=== PATIENT | female | born 1995 | race Caucasian/White ===

== ENCOUNTER 2018-09-25 06:15 | Inpatient (IN) | payer MEDICAID ==
[2018-09-23 10:48] LABS: ABSOLUTE EOSINOPHILS # (AUTO) 0.1 10^3/uL (0.0-0.6); ABSOLUTE LYMPHOCYTES (AUTO) 2.3 10^3/uL (0.5-4.7); ABSOLUTE MONOCYTES (AUTO) 1.1 10^3/uL (0.1-1.4); ABSOLUTE NEUT (AUTO) 8.5 10^3/uL (1.7-8.2); BASOPHILS % (AUTO) 0.2 % (0-2); EOSINOPHILS % (AUTO) 1.2 % (0-6); HEMATOCRIT 34.8 % (36.0-47.0); LYMPHOCYTES % (AUTO) 19.2 % (13-45); MEAN CORPUSCULAR HEMOGLOBIN 29.9 pg (27.0-33.4); MEAN CORPUSCULAR HGB CONC 34.4 g/dL (32.0-36.0); MEAN CORPUSCULAR VOLUME 87 fl (80-97); MONOCYTES % (AUTO) 9.3 % (3-13); PLATELET COUNT 271 10^3/uL (150-450); RED BLOOD COUNT 4.01 10^6/uL (3.72-5.28); RED CELL DISTRIBUTION WIDTH 13.4 % (11.5-14.0); SEGMENTED NEUTROPHILS % (AUTO) 70.1 % (42-78); TOTAL CELLS COUNTED % (AUTO) 100 %; WHITE BLOOD COUNT 12.1 10^3/uL (4.0-10.5)
[2018-09-23 10:53] LABS: APPEARANCE,URINE CLOUDY; BILIRUBIN,URINE NEGATIVE (NEGATIVE); CALCIUM OXALATE CRYSTALS,URINE FEW /HPF; GLUCOSE, URINE NEGATIVE (NEGATIVE); KETONES,URINE NEGATIVE (NEGATIVE); LEUKOCYTE ESTERASE,URINE NEGATIVE (NEGATIVE); NITRITE,URINE NEGATIVE (NEGATIVE); PROTEIN,URINE NEGATIVE (NEGATIVE); URINE SPECIFIC GRAVITY 1.026
[2018-09-23 10:58] LABS: COLOR,URINE YELLOW
[2018-09-23 11:14] LABS: URINE AMPHETAMINES SCREEN NEGATIVE; URINE BARBITURATES SCREEN NEGATIVE; URINE BENZODIAZEPINES SCREEN NEGATIVE; URINE COCAINE SCREEN NEGATIVE; URINE MARIJUANA (THC) SCREEN NEGATIVE; URINE METHADONE SCREEN NEGATIVE; URINE PHENCYCLIDINE SCREEN NEGATIVE
[~2018-09-25 06:15] MED LIST: CEFAZOLIN 1 GM/D5W RTU 1 GM/50 ML RTUPB IV PRN; LIDOCAINE 0.5% INJ-PF (5 MG/ML) 50 ML SDV SUBCUT PRN; RINGERS SOLUTION,LACTATED 1,500 ML IV PRN
[2018-09-25] MEDS ORDERED: MIDAZOLAM 2 MG/2 ML INJ ONE (07:01)
[2018-09-25] MEDS ORDERED: OXYTOCIN 10 UNIT/ML VIAL ONE (07:01)
[2018-09-25] MEDS ORDERED: FENTANYL CITRATE INJ/PF 100 MCG/2 ML AMPUL ONE ×2 (07:01→11:57)
[2018-09-25] MEDS: LACTATED RINGERS 1000 ML IV PRN ×2 (08:03→15:37)
[2018-09-25] MEDS ORDERED: PROMETHAZINE HCL INJ 25 MG/1 ML VIAL IV PRN ×3 (10:43→10:56)
[2018-09-25] MEDS ORDERED: MEPERIDINE HCL/PF INJ 25 MG/1 ML DISP.SYRIN IV PRN (10:43)
[2018-09-25] MEDS ORDERED: FENTANYL CITRATE INJ/PF 100 MCG/2 ML AMPUL IV PRN ×2 (10:43)
[2018-09-25] MEDS ORDERED: DIPHENHYDRAMINE HCL 50 MG/ML VIAL IV PRN (10:43)
[2018-09-25] MEDS ORDERED: ONDANSETRON HCL INJ/PF 4 MG/2 ML SDV IV PRN (10:43)
[2018-09-25] MEDS ORDERED: MORPHINE SULFATE 10 MG/ML INJ IV PRN (10:43)
[2018-09-25] MEDS ORDERED: DIPH/PERTUSS(ACELL)/TETANUS VAC/PF 0.5 ML SYR (>=10YO) IM PRN (10:56)
[2018-09-25] MEDS ORDERED: OXYTOCIN/NORMAL SALINE 20 UNIT/1,000 ML RTUINJ IV PRN (10:56)
[2018-09-25] MEDS ORDERED: ACETAMINOPHEN 325 MG TABLET PO PRN (10:56)
[2018-09-25] MEDS ORDERED: OXYCODONE-ACETAMINOPHEN 5-325 MG TABLET PO PRN (10:56)
[2018-09-25] MEDS ORDERED: SIMETHICONE 80 MG TAB.CHEW PO PRN (10:56)
[2018-09-25] MEDS ORDERED: MEASLES,MUMPS&RUBELLA VACC/PF 0.5 ML VIAL SUBCUT PRN (10:56)
--- NOTE | 2018-09-25 10:59 | PDOC DELIVERY SUMMARY ---
Delivery Summary - Maternal Hx : II Hx # Term Pregnancies: 1 Hx Total # of Abortions (Sponateous & Elective): 0 BUZZ: 09/28/18 Gestational Age: 39 week 4 Risk Factors: Previous , Other - desire for sterilization Ruptured Membranes: AROM Time of Rupture: 10:31 Fluids: Clear - Delivery Labor: Not In Labor Presentation: Vertex Heart Rate Monitoring: Done Pre-Operatively Support Person Present: Yes Location: OR : Scheduled, Repeat Placenta: Within Normal Limits Nuchal Cord: No Delivery of Placenta Date: 09/25/18 Delivery of Placenta Time: 10:34 - Medications Type of Anesthesia:: GA - Assess and Care Baby 1 Female Delivery of Infant Date: 09/25/18 Delivery of Time: 10:33 at 1 minute: 8 at 5 minutes: 9 Preprinted Number On Band: [id number] Skin to Skin: No To Nursery At: 10:39 Mode of Transport: [facility] - Delivery Personnel Nursery RN: SNOW OSHEA MD: PREETHI SCHUMACHER
[2018-09-25] MEDS ORDERED: ACETAMINOPHEN 1,000 MG/100 ML RTUPB IV ONE (11:06)
[2018-09-25] MEDS ORDERED: MEPERIDINE HCL/PF INJ 25 MG/1 ML DISP.SYRIN ONE (11:06)
--- NOTE | 2018-09-25 11:23 | OPERATIVE REPORT E ---
Operative Report NAME: ANDRADE REAL : 1995 AGE: 23Y DATE OF SURGERY: 09/25/2018 ROOM: 223 PREOPERATIVE DIAGNOSES: 1. IUP at term. 2. Prior . 3. Desire for sterilization. POSTOPERATIVE DIAGNOSES: 1. IUP at term. 2. Prior . 3. Desire for sterilization. OPERATION: 1. Repeat low-transverse with delivery of viable infant, 8 pounds 11 ounces, Apgars of 8 and 9. 2. Bilateral tubal occlusion using Filshie clips. SURGEON: Kelly SCHUMACHER M.D. ANESTHESIA: General. ESTIMATED BLOOD LOSS: Less than 800 mL. TISSUE REMOVED: Placenta. PROCEDURE: The patient was placed in a supine position, rolled on her right side, prepped and draped in the usual sterile fashion. A Pfannenstiel incision was made through an existing Pfannenstiel eschar and the incision extended through the subcutaneous tissue and fascia with sharp dissection. Fascia was sharply divided and rectus muscles bluntly and sharply divided. Parietal peritoneum was entered with sharp dissection. The uterus was nicked in the midline and extended bilaterally. A Kiwi was used to facilitate delivery of the baby through the uterine abdominal incision. Nose and mouth were suctioned with the bulb syringe, cord was clamped, and infant was passed from the table. The uterus was closed in 2 layers, the first a running stitch of 0 Vicryl and the second a Lembert stitch imbricating the first layer. Two areas of bleeding were noted with control with [id number]-uf-tacdr sutures of 0 Vicryl. Hemostasis was noted. Her right fallopian tube was banded in the mid portion with a good purchase of tissue being noted. The procedure was repeated on the left, again with good purchase of tissue being noted. Both tubes were identified to the fimbria prior to and after banding. The fascia was then closed with 0 Vicryl and the skin was closed with subcu absorbable gautam. The patient tolerated it well and was taken to recovery in good condition. Urine remained clear throughout the procedure. Infant to nursery in good condition. DICTATING PHYSICIAN: Kelly SCHUMACHER M.D. [id number] Y#: [id number] ID: [id number] JOB#: [id number] ACCT: [id number] cc:Kelly SCHUMACHER M.D. >
[2018-09-25] MEDS ORDERED: ACETAMINOPHEN 1,000 MG/100 ML RTUPB IV PRN (11:45)
[2018-09-25] MEDS: FENTANYL CITRATE INJ/PF 100 MCG/2 ML AMPUL IV PRN ×2 (12:05→13:10)
[2018-09-25] MEDS ORDERED: METOCLOPRAMIDE HCL INJ/PF 10 MG/2 ML SDV ONE (13:46)
[2018-09-25] MEDS ORDERED: GLYCOPYRROLATE 1 MG/5 ML SYRINGE ONE (13:46)
[2018-09-25] MEDS ORDERED: ONDANSETRON HCL INJ/PF 4 MG/2 ML SDV ONE (13:46)
[2018-09-25] MEDS ORDERED: KETOROLAC TROMETHAMINE 60 MG/2 ML SDV ONE (13:46)
[2018-09-25] MEDS ORDERED: DEXAMETHASONE SOD PHOSPHATE INJ 4 MG/1 ML VIAL ONE (13:46)
[2018-09-25] MEDS ORDERED: HYDROMORPHONE HCL INJ/PF 2 MG/ML AMPULE IV PRN (15:05)
[2018-09-25] MEDS: DOCUSATE SODIUM 100 MG CAPSULE PO SCH (17:08)
[2018-09-25] MEDS: KETOROLAC TROMETHAMINE INJ/PF 30 MG/1 ML SDV IV SCH (22:25)
[2018-09-26] MEDS: OXYCODONE-ACETAMINOPHEN 5-325 MG TABLET PO PRN ×2 (01:02→20:56)
[2018-09-26] MEDS: KETOROLAC TROMETHAMINE INJ/PF 30 MG/1 ML SDV IV SCH ×2 (05:27→22:14)
[2018-09-26 08:16] LABS: HEMATOCRIT 26.9 % (36.0-47.0); MEAN CORPUSCULAR HEMOGLOBIN 30.8 pg (27.0-33.4); MEAN CORPUSCULAR HGB CONC 35.4 g/dL (32.0-36.0); MEAN CORPUSCULAR VOLUME 87 fl (80-97); PLATELET COUNT 251 10^3/uL (150-450); RED BLOOD COUNT 3.09 10^6/uL (3.72-5.28); RED CELL DISTRIBUTION WIDTH 13.5 % (11.5-14.0)
[2018-09-26 08:18] LABS: HEMOGLOBIN 9.5 g/dL (12.0-15.5)
[2018-09-26] MEDS: DOCUSATE SODIUM 100 MG CAPSULE PO SCH ×2 (11:51→17:27)
[2018-09-26] MEDS: PRENATAL VITAMIN W DHA CAPSULE PO SCH (11:51)
[2018-09-26] MEDS ORDERED: IBUPROFEN 800 MG TABLET ONE (12:05)
--- NOTE | 2018-09-26 12:21 | PDOC PROGRESS REPORT ---
Subjective-OB Progress Note for:: 09/26/18 - POD #1, doing well,no complaints, s/p Rpt C- section. A+ Physical Exam (OB) Vital Signs: Temp Pulse Resp BP Pulse Ox 98.0 F 80 18 101/62 96 09/26/18 07:49 09/26/18 07:49 09/26/18 07:49 09/26/18 07:49 09/26/18 07:49 Intake & Output 09/25/18 09/26/18 09/27/18 06:59 06:59 06:59 Intake Total 3746 Output Total 3557 Balance 189 Weight 220 kg 99.79 kg - General General Appearance: Appears well In distress: None - PIH/Pre-Eclampsia DTR's: 2 + Clonus: Negative Headache: Absent Epigastric Pain: No Visual Changes: No - Dressing Removed: Yes Incision: Well Approximated Closure Type: Emile - Bilateral Tubal Ligation Dressing Removed: Yes Site: Dressing - Lochia Lochia Amount: Scant < 10 ml Lochia Color: Rubra/Red - Abdomen Description: Soft, Round Hernia Present: No Fundal Description: Firm, Midline Fundal Height: u/u - u/2 - Respiratory Respiratory Status: No respiratory distress Breath sounds: Clear - Cardiovascular Rhythm: Regular Heart Sounds: Normal auscultation - Abdominal Abdominal Notes: +bowel sounds - Genitourinary Genitourinary Note: voiding - Extremities Upper extremity: Normal inspection Lower extremities: Normal inspection - Neurological Cognition: Normal Orientation: AAOx4 - Psychological Associated symptoms: Normal affect, Normal mood - Skin Skin Temperature: Warm Skin Moisture: Dry Objective-Diagnostic Laboratory: 09/26/18 07:50 09/26/18 07:50 WBC 19.0 H RBC 3.09 L Hgb 9.5 L D Hct 26.9 L MCV 87 MCH 30.8 MCHC 35.4 RDW 13.5 Plt Count 251 Assessment and Plan(PN) - Assessment and Plan (1) delivery delivered Is this a current diagnosis for this admission?: Yes (2) Acute blood loss anemia Is this a current diagnosis for this admission?: Yes (3) Normal course Is this a current diagnosis for this admission?: Yes - Time Spent with Patient Time with patient: Less than 15 minutes Medications reviewed and adjusted accordingly: Yes - Disposition Anticipated Discharge: Home Within: within 48 hours
[2018-09-26] MEDS: IBUPROFEN 800 MG TABLET PO SCH (17:26)
[2018-09-27] MEDS: IBUPROFEN 800 MG TABLET PO SCH ×4 (00:21→18:12)
[2018-09-27] MEDS: PRENATAL VITAMIN W DHA CAPSULE PO SCH (09:38)
[2018-09-27] MEDS: DOCUSATE SODIUM 100 MG CAPSULE PO SCH ×2 (09:38→17:45)
--- NOTE | 2018-09-27 10:22 | PDOC DISCHARGE SUMMARY ---
Final Diagnosis Discharge Date: 09/27/18 - Final Diagnosis (1) Acute blood loss anemia Is this a current diagnosis for this admission?: Yes (2) delivery delivered Is this a current diagnosis for this admission?: Yes (3) Normal course Is this a current diagnosis for this admission?: Yes (4) Sterilization Is this a current diagnosis for this admission?: Yes Discharge Data - Discharge Medication Prescriptions: Ibuprofen [Motrin 800 mg Tablet] 800 mg PO Q8HP PRN #90 tablet PRN Reason: Oxycodone HCl/Acetaminophen [Percocet 5-325 mg Tablet] 1 tab PO Q4HP PRN #30 tablet PRN Reason: Prenat 115/Iron Fum/Folic/Dss [ 19 Tablet] 1 each PO DAILY #90 tablet Home Medications: Docusate Sodium [Colace 100 mg Capsule] 100 mg PO BID capsule 09/27/18 Ibuprofen [Motrin 800 mg Tablet] 800 mg PO Q8HP PRN #90 tablet 09/27/18 Oxycodone HCl/Acetaminophen [Percocet 5-325 mg Tablet] 1 tab PO Q4HP PRN #30 tablet 09/27/18 Prenat 115/Iron Fum/Folic/Dss [ 19 Tablet] 1 each PO DAILY #90 tablet 09/27/18 Procedures: NST Intrapartum Procedure(s): : Low Cervical, Transverse - Diagnosis Test Laboratory: Temp Pulse Resp BP Pulse Ox 97.7 F 91 16 102/65 96 09/27/18 08:00 09/27/18 08:00 09/27/18 08:00 09/27/18 08:00 09/27/18 08:00 09/23/18 09/23/18 09/26/18 09:17 09:17 07:50 RBC 4.01 3.09 L Hgb 12.0 9.5 L D Hct 34.8 L 26.9 L Urine Opiates Screen NEGATIVE - Discharge information/Instructions Discharge Activity: Balance Activity w/Rest, No Lifting Over 10 Pounds, No Lifting/Push/Pulling, Pelvic Rest, No tub bath Discharge Diet: Regular Disposition: HOME, SELF-CARE Follow up with: [facility] in: 1, Weeks
[2018-09-27 16:58] VITALS: BP 109/64
== END 2018-09-27 18:58 | disposition home or self-care (01) | DRG 784 ==
LOC: 2S 06:15
PROVIDERS: ADMIT Obstetrics & Gynecology Gynecology; ATTEND Obstetrics & Gynecology Gynecology
PROC: 0UL70CZ Occlusion of Bilateral Fallopian Tubes with Extraluminal Device, Open Approach (ICD-10-PCS; 2018-09-25)
PROC: 10D00Z1 Extraction of Products of Conception, Low, Open Approach (ICD-10-PCS; principal; 2018-09-25 10:15)
DX: O34.211 Maternal care for low transverse scar from previous cesarean delivery (principal); D62 Acute posthemorrhagic anemia; O90.81 Anemia of the puerperium; Z30.2 Encounter for sterilization
CPT/HCPCS: 1961; 36415; 80307; 81001; 85025; 85027; 86850; 86900; 86901; 94799; J0131; J1100; J1170; J1885; J2175; J2250; J2405; J2590; J2765; J3010; J3490; J7120

== ENCOUNTER 2019-07-04 12:53 | Emergency (ER) | payer SELFPAY ==
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
[2019-07-04 14:55] VITALS: BP 112/56
== END 2019-07-04 14:30 | disposition home or self-care (01) ==
LOC: ER 12:53
DX: S53.402A Unspecified sprain of left elbow, initial encounter (principal); S50.312A Abrasion of left elbow, initial encounter; M25.522 Pain in left elbow; V18.9XXA Unspecified pedal cyclist injured in noncollision transport accident in traffic accident, initial encounter
CPT/HCPCS: 99283